=== PATIENT | male | born 1955 | race Caucasian/White ===

== ENCOUNTER → 2021-03-05 | Outpatient (CLI) | payer MEDICARE ==
[~2021-03-05] MED LIST: AMBIEN10 MG PO; DITROPAN XL10 MG PO; IOPAMIDOL 370 MG/ML 200 ML INFUS..BTL INJ ONE; KEFLEX500 MG PO; LOVENOX30 MG/0.3 SC; NORCO 10MG-325MG1 EA PO; NORCO 7.5-3251 EACH PO; SODIUM CHLORIDE 0.9% 50ML 50 ML ONE; URIBEL CAPSULE1 EACH PO; VALIUM5 MG PO; no home medications
== END ==
LOC: CT 08:28
PROVIDERS: ATTEND Internal Medicine
DX: C61 Malignant neoplasm of prostate (principal)
CPT/HCPCS: 74177; Q9967

== ENCOUNTER → 2021-04-13 | Day surgery (SDC) | payer MEDICARE, OTHER ==
[2021-04-07 12:53] LABS: BASOPHILS # (AUTO) 0.1 (0.0-0.1); BASOPHILS % 0.7 % (0.0-1.0); EOSINOPHILS # (AUTO) 0.1 (0.0-0.4); EOSINOPHILS % 1.9 % (0.0-6.0); HEMATOCRIT 37.6 % (38.2-49.6); HEMOGLOBIN 12.4 g/dL (14.0-18.0); LYMPHOCYTES # (AUTO) 0.9 (1.0-3.2); LYMPHOCYTES % 12.3 % (18.0-39.1); MEAN CORPUSCULAR VOLUME 97.2 fL (81-99); MONOCYTES # (AUTO) 0.8 (0.2-0.8); NEUTROPHILS # (AUTO) 5.4 (2.1-6.9); NEUTROPHILS % 73.6 % (38.7-80.0); PLATELET COUNT 267 x10e3/uL (140-360); RED BLOOD COUNT 3.87 x10e6/uL (4.3-5.7); RED CELL DISTRIBUTION WIDTH 14.2 % (11.7-14.4)
[~2021-04-13] MED LIST changes: +AMIODARONE HCL200 MG PO; +ATORVASTATIN CA10 MG PO; +DIGOXIN125 MCG PO; +EPHEDRINE SULFATE INJ 50 MG/ML VIAL ONE; +FENTANYL CITRATE/PF 100MCG/2 ML INJ ONE; +HYOSCYAMINE SULFATE 0.5 MG/ML INJ ONE; -IOPAMIDOL 370 MG/ML 200 ML INFUS..BTL INJ ONE; +LIDOCAINE HCL 2% LOCAL INJ 5 ML SDV VIAL INJ ONE; +MIDAZOLAM HCL 2 MG/2 ML VIAL ONE; +PROPOFOL IV EMULSION 10 MG/ML 20 ML VIAL ONE; -SODIUM CHLORIDE 0.9% 50ML 50 ML ONE; +VALACYCLOVIR1000 MG PO; +VALSARTAN-HCTZ1 EACH PO; +XARELTO20 MG PO
[2021-04-13 15:25] VITALS: BP 110/69
== END | disposition home or self-care (01) ==
LOC: OR 09:55
PROVIDERS: ATTEND Internal Medicine Gastroenterology
DX: Z09 Encounter for follow-up examination after completed treatment for conditions other than malignant neoplasm (principal); D12.3 Benign neoplasm of transverse colon; D12.4 Benign neoplasm of descending colon; K57.30 Diverticulosis of large intestine without perforation or abscess without bleeding; K64.8 Other hemorrhoids; I48.91 Unspecified atrial fibrillation; B02.9 Zoster without complications; R00.1 Bradycardia, unspecified; I11.0 Hypertensive heart disease with heart failure; I50.9 Heart failure, unspecified; E78.5 Hyperlipidemia, unspecified; Z88.6 Allergy status to analgesic agent; Z01.810 Encounter for preprocedural cardiovascular examination; Z01.812 Encounter for preprocedural laboratory examination; Z79.02 Long term (current) use of antithrombotics/antiplatelets; Z68.28 Body mass index [BMI] 28.0-28.9, adult; Z85.46 Personal history of malignant neoplasm of prostate
CPT/HCPCS: 36415; 45385; 85025; 88305; 93005; J1980; J2001; J2250; J2704; J3010; 45378; 45384

== ENCOUNTER → 2021-09-23 | Outpatient (CLI) | payer MEDICARE, OTHER ==
[~2021-09-23] MED LIST changes: -EPHEDRINE SULFATE INJ 50 MG/ML VIAL ONE; -FENTANYL CITRATE/PF 100MCG/2 ML INJ ONE; -HYOSCYAMINE SULFATE 0.5 MG/ML INJ ONE; -LIDOCAINE HCL 2% LOCAL INJ 5 ML SDV VIAL INJ ONE; -MIDAZOLAM HCL 2 MG/2 ML VIAL ONE; -PROPOFOL IV EMULSION 10 MG/ML 20 ML VIAL ONE
== END ==
LOC: RAD 10:06
PROVIDERS: ATTEND Internal Medicine
DX: M54.50 Low back pain, unspecified (principal); G89.29 Other chronic pain; C61 Malignant neoplasm of prostate; I10 Essential (primary) hypertension
CPT/HCPCS: 72072; 72110; 72220; 73522

== ENCOUNTER → 2022-02-12 | Day surgery (SDC) | payer MEDICARE, OTHER ==
[2022-02-11 13:31] LABS: BASOPHILS % 0.6 % (0.0-1.0); EOSINOPHILS # (AUTO) 0.1 (0.0-0.4); EOSINOPHILS % 0.9 % (0.0-6.0); HEMATOCRIT 43.7 % (38.2-49.6); HEMOGLOBIN 14.6 g/dL (14.0-18.0); LYMPHOCYTES # (AUTO) 0.7 (1.0-3.2); LYMPHOCYTES % 10.8 % (18.0-39.1); MEAN CORPUSCULAR HEMOGLOBIN 32.9 pg (28-32); MEAN CORPUSCULAR HGB CONC 33.4 g/dL (31-35); MEAN CORPUSCULAR VOLUME 98.4 fL (81-99); MONOCYTES # (AUTO) 0.6 (0.2-0.8); MONOCYTES % 8.7 % (4.4-11.3); NEUTROPHILS # (AUTO) 5.4 (2.1-6.9); NEUTROPHILS % 78.4 % (38.7-80.0); PLATELET COUNT 266 x10e3/uL (140-360); RED BLOOD COUNT 4.44 x10e6/uL (4.3-5.7); RED CELL DISTRIBUTION WIDTH 13.4 % (11.7-14.4)
[2022-02-11 13:52] LABS: ALBUMIN 3.9 g/dL (3.5-5.0); ALBUMIN/GLOBULIN RATIO 1.1 (0.8-2.0); ANION GAP 13.4 mmol/L (8-16); CALCIUM 9.6 mg/dL (8.4-10.2); CREATININE, SERUM 1.09 mg/dL (0.72-1.25); POTASSIUM 4.4 mmol/L (3.5-5.1)
[2022-02-12] VITALS (8 sets, daily range): BP systolic 93–108; BP diastolic 66–81
[~2022-02-12] VITALS: Ht 185.4 cm; Wt 92.1 kg
[~2022-02-12] MED LIST changes: +BENZOCAINE 20% SPR 60 ML CAN ONE; +ELIQUIS5 MG PO; +FENTANYL CITRATE/PF 100MCG/2 ML INJ ONE; +FLECAINIDE ACE100 MG PO; +MIDAZOLAM HCL 2 MG/2 ML VIAL ONE; +SODIUM CHLORIDE 0.9% 1000ML 1,000 ML ONE
== END | disposition home or self-care (01) ==
LOC: CATH LAB 07:09
PROVIDERS: ATTEND Internal Medicine Interventional Cardiology
DX: I48.0 Paroxysmal atrial fibrillation (principal); I20.8 Other forms of angina pectoris; I10 Essential (primary) hypertension; E78.00 Pure hypercholesterolemia, unspecified; Z71.3 Dietary counseling and surveillance; Z71.82 Exercise counseling; Z01.812 Encounter for preprocedural laboratory examination; Z20.822 Contact with and (suspected) exposure to COVID-19; Z79.82 Long term (current) use of aspirin; Z79.899 Other long term (current) drug therapy; Z95.818 Presence of other cardiac implants and grafts; Z82.49 Family history of ischemic heart disease and other diseases of the circulatory system
CPT/HCPCS: 36415; 80053; 85025; 92960; 93005; 93312; 93320; 93325; 93355; 99152; J2250; J3010; J7030; U0002

== ENCOUNTER 2024-01-23 21:19 | Inpatient (IN) | payer MEDICARE, OTHER ==
[~2024-01-23] VITALS: Ht 185.4 cm; Wt 91.2 kg
[~2024-01-23 21:19] MED LIST changes: -BENZOCAINE 20% SPR 60 ML CAN ONE; -FENTANYL CITRATE/PF 100MCG/2 ML INJ ONE; -MIDAZOLAM HCL 2 MG/2 ML VIAL ONE; -SODIUM CHLORIDE 0.9% 1000ML 1,000 ML ONE
[2024-01-23] MEDS ORDERED: AMIODARONE HCL 100 ML IV ONE (21:52)
[2024-01-23] MEDS ORDERED: AMIODARONE 900MG 500 ML IV ONE (21:52)
[2024-01-23 21:53] LABS: BASOPHILS % 0.6 % (0.0-1.0); EOSINOPHILS # (AUTO) 0.1 (0.0-0.4); EOSINOPHILS % 2.1 % (0.0-6.0); HEMATOCRIT 40.2 % (38.2-49.6); HEMOGLOBIN 14.3 g/dL (14.0-18.0); LYMPHOCYTES # (AUTO) 1.6 (1.0-3.2); LYMPHOCYTES % 23.9 % (18.0-39.1); MEAN CORPUSCULAR HEMOGLOBIN 34.3 pg (28-32); MEAN CORPUSCULAR HGB CONC 35.6 g/dL (31-35); MEAN CORPUSCULAR VOLUME 96.4 fL (81-99); MONOCYTES # (AUTO) 0.8 (0.2-0.8); NEUTROPHILS # (AUTO) 4.1 (2.1-6.9); NEUTROPHILS % 61.1 % (38.7-80.0); PLATELET COUNT 236 x10e3/uL (140-360); RED BLOOD COUNT 4.17 x10e6/uL (4.3-5.7); RED CELL DISTRIBUTION WIDTH 13.2 % (11.7-14.4); WHITE BLOOD COUNT 6.74 x10e3/uL (4.8-10.8)
[2024-01-23] MEDS: AMIODARONE HCL 150 MG/100 ML BAG IV ONE (21:59)
[2024-01-23 22:11] LABS: ALBUMIN 3.9 g/dL (3.5-5.0); ALBUMIN/GLOBULIN RATIO 1.1 (0.8-2.0); ANION GAP 17.4 mmol/L (8-16); BILIRUBIN,TOTAL 0.8 mg/dL (0.2-1.2); CALCIUM 9.9 mg/dL (8.4-10.2); CREATININE, SERUM 1.26 mg/dL (0.72-1.25); TOTAL PROTEIN 7.5 g/dL (6.5-8.1)
[2024-01-23] MEDS: SODIUM CHLORIDE 0.9% 1000ML 1,000 ML IV ONE (22:11)
[2024-01-23] MEDS: AMIODARONE 900MG 900 MG in Premix Bag 1 BAG IV ONE (22:11)
[2024-01-23] MEDS: ENOXAPARIN INJ 80 MG/0.8 ML SYR SC STA (22:11)
[2024-01-23 22:14] LABS: POTASSIUM 3.4 mmol/L (3.5-5.1)
[2024-01-23] MEDS: METOPROLOL TARTRATE INJ 1 MG/ML VIAL IV ONE (22:14)
[2024-01-24] VITALS (16 sets, daily range): BP systolic 94–143; BP diastolic 62–89; PULSE 51–62; RESP 12–20; TEMP 97.6–98.6; O2SAT 94–99
[2024-01-24] MEDS ORDERED: ONDANSETRON HCL INJ 2MG/ML 2ML 2 MG/ML VIAL IV PRN (00:15)
[2024-01-24] MEDS ORDERED: SODIUM CHLORIDE FLUSH 10 ML SYR INJ PRN (00:15)
[2024-01-24] MEDS: ENOXAPARIN SODIUM INJ 100 MG/ML SYR SC SCH (09:00)
[2024-01-24 09:43] LABS: TROPONIN I 0.007 ng/mL (0-0.300)
[2024-01-24] MEDS ORDERED: ASPIRIN CHEW81 MG PO (17:56)
[2024-01-24] MEDS ORDERED: XTANDI40 M1 (17:56)
[2024-01-24 18:11] LABS: CREATINE KINASE 46 IU/L (30-200)
[2024-01-24 18:19] LABS: TROPONIN I < 0.001 ng/mL (0-0.300)
== END 2024-01-24 19:15 | disposition home or self-care (01) | DRG 310 ==
LOC: ER 21:29 → ERHOLD 01-24 00:03 → ICU 01-24 01:05
PROVIDERS: ADMIT Internal Medicine; ATTEND Internal Medicine
DX: I48.20 Chronic atrial fibrillation, unspecified (principal); I10 Essential (primary) hypertension; E78.5 Hyperlipidemia, unspecified; Z79.01 Long term (current) use of anticoagulants; Z85.46 Personal history of malignant neoplasm of prostate; Z88.5 Allergy status to narcotic agent; Z11.52 Encounter for screening for COVID-19
CPT/HCPCS: 36415; 71045; 80053; 82550; 84484; 85025; 93005; 93306; 99252; 99284; J1650; J7030; U0002

== ENCOUNTER 2024-08-31 11:13 | Inpatient (IN) | payer MEDICARE, OTHER ==
[~2024-08-31] VITALS: Ht 185.4 cm; Wt 91.2 kg
[2024-08-31] VITALS (12 sets, daily range): BP systolic 103–133; BP diastolic 65–85; PULSE 59–128; RESP 10–22; TEMP 97.6; O2SAT 86–98
[~2024-08-31 11:13] MED LIST changes: +ASPIRIN CHEW81 MG PO; +XTANDI40 M1
[2024-08-31 12:04] LABS: BASOPHILS % 0.4 % (0.0-1.0); EOSINOPHILS # (AUTO) 0.1 (0.0-0.4); EOSINOPHILS % 1.4 % (0.0-6.0); HEMATOCRIT 41.7 % (38.2-49.6); HEMOGLOBIN 13.6 g/dL (14.0-18.0); LYMPHOCYTES # (AUTO) 1.1 (1.0-3.2); LYMPHOCYTES % 16.4 % (18.0-39.1); MEAN CORPUSCULAR HEMOGLOBIN 33.5 pg (28-32); MEAN CORPUSCULAR HGB CONC 32.6 g/dL (31-35); MEAN CORPUSCULAR VOLUME 102.7 fL (81-99); MONOCYTES # (AUTO) 0.7 (0.2-0.8); MONOCYTES % 10.4 % (4.4-11.3); NEUTROPHILS # (AUTO) 4.9 (2.1-6.9); NEUTROPHILS % 71.1 % (38.7-80.0); PLATELET COUNT 270 x10e3/uL (140-360); RED BLOOD COUNT 4.06 x10e6/uL (4.3-5.7); RED CELL DISTRIBUTION WIDTH 12.8 % (11.7-14.4); WHITE BLOOD COUNT 6.95 x10e3/uL (4.8-10.8)
[2024-08-31] MEDS ORDERED: AMIODARONE 900MG 500 ML IV ONE (12:07)
[2024-08-31] MEDS: SODIUM CHLORIDE 0.9% 500ML 500 ML IV ONE (12:11)
[2024-08-31] MEDS: DILTIAZEM HCL 5 MG/ML 5 ML VIAL IV STA (12:24)
[2024-08-31] MEDS: AMIODARONE HCL 150 MG/100 ML BAG IV ONE (12:26)
[2024-08-31 12:29] LABS: INR 0.92; PROTHROMBIN TIME 12.9 seconds (11.9-14.5)
[2024-08-31] MEDS: AMIODARONE 900MG 500 ML IV SCH (12:29)
[2024-08-31 12:30] LABS: PARTIAL THROMBOPLASTIN TIME 31.5 seconds (23.8-35.5)
[2024-08-31] MEDS: ENOXAPARIN SODIUM INJ 100 MG/ML SYR SC ONE (12:37)
[2024-08-31 12:38] LABS: ALBUMIN 3.5 g/dL (3.5-5.0); ALBUMIN/GLOBULIN RATIO 0.9 (0.8-2.0); ANION GAP 18.5 mmol/L (8-16); BILIRUBIN,TOTAL 0.6 mg/dL (0.2-1.2); CALCIUM 9.8 mg/dL (8.4-10.2); CREATININE, SERUM 1.23 mg/dL (0.72-1.25); MAGNESIUM 1.8 MG/DL (1.3-2.1); POTASSIUM 3.5 mmol/L (3.5-5.1); TOTAL PROTEIN 7.5 g/dL (6.5-8.1)
[2024-08-31 12:44] LABS: TROPONIN I 0.006 ng/mL (0-0.300)
[2024-09-01] VITALS (20 sets, daily range): BP systolic 91–134; BP diastolic 67–84; PULSE 51–57; RESP 12–18; TEMP 97.7–98; O2SAT 96–100
[2024-09-01 00:37] LABS: TROPONIN I 0.003 ng/mL (0-0.300)
[2024-09-01 07:15] LABS: BASOPHILS % 0.5 % (0.0-1.0); EOSINOPHILS # (AUTO) 0.2 (0.0-0.4); EOSINOPHILS % 4.3 % (0.0-6.0); HEMATOCRIT 37.3 % (38.2-49.6); HEMOGLOBIN 12.1 g/dL (14.0-18.0); MEAN CORPUSCULAR HEMOGLOBIN 33.4 pg (28-32); MEAN CORPUSCULAR HGB CONC 32.4 g/dL (31-35); MONOCYTES # (AUTO) 0.6 (0.2-0.8); MONOCYTES % 11.4 % (4.4-11.3); NEUTROPHILS # (AUTO) 3.7 (2.1-6.9); NEUTROPHILS % 66.3 % (38.7-80.0); PLATELET COUNT 238 x10e3/uL (140-360); RED BLOOD COUNT 3.62 x10e6/uL (4.3-5.7); RED CELL DISTRIBUTION WIDTH 12.8 % (11.7-14.4)
[2024-09-01 07:41] LABS: ALBUMIN 2.9 g/dL (3.5-5.0); ALBUMIN/GLOBULIN RATIO 0.9 (0.8-2.0); ANION GAP 12.6 mmol/L (8-16); BILIRUBIN,TOTAL 0.6 mg/dL (0.2-1.2); CALCIUM 9.2 mg/dL (8.4-10.2); CHOL/HDL RATIO 5.2 (3.9-4.7); CREATININE, SERUM 1.12 mg/dL (0.72-1.25); POTASSIUM 3.6 mmol/L (3.5-5.1); TOTAL PROTEIN 6.3 g/dL (6.5-8.1)
[2024-09-01 07:48] LABS: TROPONIN I 0.006 ng/mL (0-0.300)
[2024-09-01] MEDS: ENOXAPARIN INJ 80 MG/0.8 ML SYR SC SCH (08:15)
[2024-09-01] MEDS: AMIODARONE HCL 200 MG TAB PO SCH (09:42)
[2024-09-01] MEDS ORDERED: ELIQUIS5 MG PO (12:16)
[2024-09-01] MEDS ORDERED: AMIODARONE HCL200 MG PO (12:16)
[2024-09-01] MEDS ORDERED: APIXABAN 5 MG TABLET PO SCH (17:00)
[2024-09-01] MEDS ORDERED: ATORVASTATIN 10 MG TAB PO SCH (21:00)
== END 2024-09-01 12:41 | disposition home or self-care (01) | DRG 309 ==
LOC: ER 11:24 → ERHOLD 12:25 → ICU 14:57
PROVIDERS: ADMIT Internal Medicine; ATTEND Internal Medicine
DX: I48.0 Paroxysmal atrial fibrillation (principal); K52.1 Toxic gastroenteritis and colitis; I12.9 Hypertensive chronic kidney disease with stage 1 through stage 4 chronic kidney disease, or unspecified chronic kidney disease; N18.2 Chronic kidney disease, stage 2 (mild); E78.5 Hyperlipidemia, unspecified; Z79.01 Long term (current) use of anticoagulants; Z79.82 Long term (current) use of aspirin; Z85.46 Personal history of malignant neoplasm of prostate; Z88.5 Allergy status to narcotic agent; Z87.891 Personal history of nicotine dependence
CPT/HCPCS: 36415; 71045; 80053; 80061; 82550; 83735; 83880; 84484; 85025; 85610; 85730; 93005; 93308; 99284; J1650; J7040

== ENCOUNTER → 2025-03-08 | Day surgery (SDC) | payer MEDICARE, OTHER ==
[2025-03-07 11:23] LABS: BASOPHILS % 0.8 % (0.0-1.0); EOSINOPHILS # (AUTO) 0.1 (0.0-0.4); EOSINOPHILS % 2.1 % (0.0-6.0); HEMATOCRIT 36.7 % (38.2-49.6); HEMOGLOBIN 12.7 g/dL (14.0-18.0); LYMPHOCYTES # (AUTO) 0.6 (1.0-3.2); LYMPHOCYTES % 11.5 % (18.0-39.1); MEAN CORPUSCULAR HEMOGLOBIN 33.6 pg (28-32); MEAN CORPUSCULAR HGB CONC 34.6 g/dL (31-35); MEAN CORPUSCULAR VOLUME 97.1 fL (81-99); MONOCYTES # (AUTO) 0.5 (0.2-0.8); MONOCYTES % 10.7 % (4.4-11.3); NEUTROPHILS # (AUTO) 3.6 (2.1-6.9); NEUTROPHILS % 74.5 % (38.7-80.0); PLATELET COUNT 231 x10e3/uL (140-360); RED BLOOD COUNT 3.78 x10e6/uL (4.3-5.7); RED CELL DISTRIBUTION WIDTH 12.9 % (11.7-14.4); WHITE BLOOD COUNT 4.78 x10e3/uL (4.8-10.8)
[~2025-03-08] MED LIST changes: +ACETAMINOPHEN-1 EAC4 PO; +ASPIRIN81 MG PO; +AUGMENTIN 500-1 EACH PO; +FLOMAX0.4 MG PO; +GLUCAGON FOR INJ 1 MG VIAL ONE; +HYOSCYAMINE SULFATE 0.5 MG/ML INJ ONE; +K2 PLUS D3 TAB1 EACH PO; +LACTATED RINGER'S 1,000 ML ONE; +LIDOCAINE HCL 2% LOCAL INJ 5 ML SDV VIAL INJ ONE; +ONDANSETRON ODT4 MG PO; +PROPAFENONE HC225 MG PO; +PROPOFOL IV EMULSION 50 ML IV ONE; +VALSARTAN-HCTZ1 EAC4 PO
[2025-03-08 14:51] VITALS: TEMP 97.9
[2025-03-08 15:05] VITALS: BP 111/77; PULSE 76; RESP 16; O2SAT 98
== END | disposition home or self-care (01) ==
LOC: OR 11:30
PROVIDERS: ATTEND Internal Medicine Gastroenterology
DX: Z09 Encounter for follow-up examination after completed treatment for conditions other than malignant neoplasm (principal); K62.1 Rectal polyp; K57.30 Diverticulosis of large intestine without perforation or abscess without bleeding; K59.09 Other constipation; K64.8 Other hemorrhoids; Z86.0100 Personal history of colon polyps, unspecified; I10 Essential (primary) hypertension; Z71.89 Other specified counseling; I48.91 Unspecified atrial fibrillation; E78.5 Hyperlipidemia, unspecified; D64.9 Anemia, unspecified; N20.0 Calculus of kidney; M06.9 Rheumatoid arthritis, unspecified; M19.90 Unspecified osteoarthritis, unspecified site; Z88.6 Allergy status to analgesic agent; Z01.810 Encounter for preprocedural cardiovascular examination; Z01.812 Encounter for preprocedural laboratory examination; Z79.82 Long term (current) use of aspirin; Z79.899 Other long term (current) drug therapy; Z68.25 Body mass index [BMI] 25.0-25.9, adult; Z71.3 Dietary counseling and surveillance; Z85.46 Personal history of malignant neoplasm of prostate
CPT/HCPCS: 36415; 45385; 85025; 88305; 93005; J1610; J1980; J2003; J2704; J7121; 45378

== ENCOUNTER 2025-05-09 00:06 | Emergency (ER) | payer MEDICARE, OTHER ==
[~2025-05-09] VITALS: Ht 185.4 cm; Wt 87.5 kg
[~2025-05-09 00:06] MED LIST changes: -ACETAMINOPHEN-1 EAC4 PO; -AUGMENTIN 500-1 EACH PO; -FLOMAX0.4 MG PO; -GLUCAGON FOR INJ 1 MG VIAL ONE; -HYOSCYAMINE SULFATE 0.5 MG/ML INJ ONE; -LACTATED RINGER'S 1,000 ML ONE; -LIDOCAINE HCL 2% LOCAL INJ 5 ML SDV VIAL INJ ONE; -ONDANSETRON ODT4 MG PO; -PROPOFOL IV EMULSION 50 ML IV ONE
[2025-05-09] MEDS ORDERED: SODIUM CHLORIDE FLUSH 10 ML SYR IV PRN (00:15)
[2025-05-09 00:31] LABS: BASOPHILS % 0.4 % (0.0-1.0); EOSINOPHILS % 0.4 % (0.0-6.0); LYMPHOCYTES % 7.8 % (18.0-39.1); MONOCYTES % 7.4 % (4.4-11.3); NEUTROPHILS % 83.8 % (38.7-80.0); RED CELL DISTRIBUTION WIDTH 14.0 % (11.7-14.4)
[2025-05-09 00:47] LABS: EST GLOMERULAR FILTRATION RATE 46.0 ML/MIN (>=60)
[2025-05-09 00:49] LABS: LEUKOCYTE ESTERASE ,URINE NEGATIVE (NEGATIVE); PROTEIN,URINE DIPSTICK 1+ (NEGATIVE); URINE UROBILINOGEN 0.2 mg/dL (0.2 - 1)
[2025-05-09 00:53] LABS: EPITHELIAL CELLS,URINE FEW /LPF; WBC,URINE (MAN) 0-5 /HPF (0-5)
[2025-05-09] MEDS: KETOROLAC TROMETHAMINE 30 MG/ML VIAL IV STA (01:45)
[2025-05-09 01:47] VITALS: PULSE 63; RESP 17; TEMP 98.5; O2SAT 98
[2025-05-09] MEDS ORDERED: FLOMAX0.4 MG PO (02:20)
[2025-05-09] MEDS ORDERED: AUGMENTIN 500-1 EACH PO (02:20)
[2025-05-09] MEDS ORDERED: ACETAMINOPHEN-1 EAC4 PO (02:20)
[2025-05-09] MEDS ORDERED: ONDANSETRON ODT4 MG PO (02:23)
== END 2025-05-09 01:50 | disposition home or self-care (01) ==
LOC: ER 00:37
DX: R10.9 Unspecified abdominal pain (principal); R11.2 Nausea with vomiting, unspecified; N20.0 Calculus of kidney; K57.90 Diverticulosis of intestine, part unspecified, without perforation or abscess without bleeding; R91.1 Solitary pulmonary nodule; I10 Essential (primary) hypertension; I48.91 Unspecified atrial fibrillation; E78.5 Hyperlipidemia, unspecified; Z85.46 Personal history of malignant neoplasm of prostate; Z96.651 Presence of right artificial knee joint
CPT/HCPCS: 36415; 74176; 80053; 81001; 85025; 99284; J1885

== ENCOUNTER 2025-05-15 05:48 | Inpatient (IN) | payer MEDICARE, OTHER ==
[2025-05-15] VITALS (26 sets, daily range): BP systolic 83–151; BP diastolic 64–91; PULSE 46–58; RESP 8–17; TEMP 98–98.4; O2SAT 95–100
[~2025-05-15] VITALS: Ht 185.4 cm; Wt 88.3 kg
[~2025-05-15 05:48] MED LIST changes: +ACETAMINOPHEN-1 EAC4 PO; +AUGMENTIN 500-1 EACH PO; +FLOMAX0.4 MG PO; +ONDANSETRON ODT4 MG PO
[2025-05-15] MEDS: METOPROLOL TARTRATE 25 MG TAB PO ONE (06:05)
[2025-05-15] MEDS: METOPROLOL TARTRATE INJ 1 MG/ML VIAL IV ONE (06:05)
[2025-05-15 06:07] LABS: BASOPHILS % 0.4 % (0.0-1.0); EOSINOPHILS % 2.5 % (0.0-6.0); LYMPHOCYTES % 17.3 % (18.0-39.1); MONOCYTES % 10.2 % (4.4-11.3); NEUTROPHILS % 69.3 % (38.7-80.0); RED CELL DISTRIBUTION WIDTH 14.2 % (11.7-14.4)
[2025-05-15] MEDS: ENOXAPARIN SODIUM INJ 100 MG/ML SYR SC ONE (06:19)
[2025-05-15 06:31] LABS: INR 0.79
[2025-05-15 06:39] LABS: EST GLOMERULAR FILTRATION RATE 51.0 ML/MIN (>=60)
[2025-05-15] MEDS ORDERED: AMIODARONE 900MG 900 MG in Premix Bag 1 BAG IV ONE (06:45)
[2025-05-15] MEDS: SODIUM CHLORIDE 0.9% 1000ML 1,000 ML IV ONE (06:48)
[2025-05-15] MEDS: AMIODARONE HCL 150 MG/100 ML BAG IV ONE (06:54)
[2025-05-15] MEDS: AMIODARONE 900MG 500 ML IV SCH (07:06)
[2025-05-15] MEDS ORDERED: SODIUM CHLORIDE FLUSH 10 ML SYR INJ PRN (07:30)
[2025-05-15] MEDS ORDERED: ONDANSETRON HCL INJ 2MG/ML 2ML 2 MG/ML VIAL IV PRN (07:30)
[2025-05-15 08:41] LABS: LEUKOCYTE ESTERASE ,URINE TRACE (NEGATIVE); PROTEIN,URINE DIPSTICK 2+ (NEGATIVE); URINE UROBILINOGEN 0.2 mg/dL (0.2 - 1)
[2025-05-15 08:51] LABS: EPITHELIAL CELLS,URINE RARE /LPF
[2025-05-15] MEDS: SODIUM CHLORIDE 0.9% 1000ML 1,000 ML IV SCH (09:15)
[2025-05-15] MEDS ORDERED: HYDRALAZINE HCL25 MG PO (11:18)
[2025-05-15] MEDS: MUPIROCIN 2% OINT 22 GM TUBE TOP SCH (12:11)
[2025-05-15] MEDS: HYDRALAZINE HCL 25 MG TAB PO SCH (18:10)
[2025-05-15] MEDS: ATORVASTATIN 10 MG TAB PO SCH (20:13)
[2025-05-16] VITALS: BP 153/90; PULSE 61; RESP 13; O2SAT 98
[2025-05-16] MEDS ORDERED: ACETAMINOPHEN 325 MG TAB PO PRN
[2025-05-16] MEDS ORDERED: POLYETHYLENE GLYCOL 3350 17 GM PACK PO PRN
[2025-05-16 02:00] VITALS: BP 144/87; PULSE 58; RESP 13; O2SAT 95
[2025-05-16 05:28] LABS: BASOPHILS % 0.2 % (0.0-1.0); EOSINOPHILS % 1.8 % (0.0-6.0); LYMPHOCYTES % 6.0 % (18.0-39.1); MONOCYTES % 6.6 % (4.4-11.3); NEUTROPHILS % 85.0 % (38.7-80.0); RED CELL DISTRIBUTION WIDTH 14.4 % (11.7-14.4)
[2025-05-16 06:10] LABS: PHOSPHORUS 2.7 MG/DL (2.3-4.7)
[2025-05-16 06:12] LABS: EST GLOMERULAR FILTRATION RATE 54.0 ML/MIN (>=60)
[2025-05-16 06:19] VITALS: BP 156/80; PULSE 61; RESP 12; O2SAT 98
[2025-05-16 07:00] VITALS: PULSE 62; RESP 11; O2SAT 96
[2025-05-16 08:00] VITALS: BP 138/78; PULSE 59; RESP 14; TEMP 98.4; O2SAT 95
[2025-05-16] MEDS: AMIODARONE HCL 200 MG TAB PO SCH (08:08)
[2025-05-16] MEDS: TAMSULOSIN HCL 0.4 MG CAP PO SCH (08:08)
[2025-05-16] MEDS: DOCUSATE SODIUM 100 MG CAP PO SCH (08:08)
[2025-05-16] MEDS: ASPIRIN 81 MG CHEW TAB PO SCH (08:09)
[2025-05-16] MEDS ORDERED: SENNA S TABLET1 EACH PO (09:53)
[2025-05-16] MEDS ORDERED: AMIODARONE HCL200 MG PO (09:53)
[2025-05-16] MEDS ORDERED: DULCOLAX5 MG PO (09:53)
[2025-05-16] MEDS ORDERED: ELIQUIS5 MG PO (09:53)
[2025-05-16 11:24] VITALS: BP 149/81; PULSE 69; RESP 21; TEMP 97.8; O2SAT 98
== END 2025-05-16 12:00 | disposition home or self-care (01) | DRG 310 ==
LOC: ER 06:17 → ERHOLD 07:16 → ICU 09:10 → MED/SURG 05-16 08:39
PROVIDERS: ADMIT Internal Medicine; ATTEND Internal Medicine
DX: I48.0 Paroxysmal atrial fibrillation (principal); I12.9 Hypertensive chronic kidney disease with stage 1 through stage 4 chronic kidney disease, or unspecified chronic kidney disease; E78.5 Hyperlipidemia, unspecified; N18.30 Chronic kidney disease, stage 3 unspecified; C61 Malignant neoplasm of prostate; Z96.0 Presence of urogenital implants; R53.81 Other malaise; N13.5 Crossing vessel and stricture of ureter without hydronephrosis; K59.00 Constipation, unspecified; Z79.82 Long term (current) use of aspirin; Z88.5 Allergy status to narcotic agent; Z87.891 Personal history of nicotine dependence
CPT/HCPCS: 36415; 71045; 80053; 81001; 82550; 83036; 83735; 84100; 84439; 84443; 84484; 85025; 85610; 85730; 93005; 99284; J1650; J7030